=== PATIENT | male | born 2000 | race Caucasian/White ===

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

== ENCOUNTER 2020-07-14 20:28 | Observation (INO) | payer OTHER ==
[~2020-07-14] VITALS: Ht 193 cm; Wt 108.1 kg
[2020-07-14] MEDS ORDERED: RT-ALBUTEROL INHALER HFA (VENTOLIN HFA) 18 GM IH ONE (20:36)
--- NOTE | 2020-07-14 20:55 | ED General ---
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 No fevers or chills but he has been taking Tylenol and ibuprofen for body aches. He is otherwise healthy without asthma or any respiratory issues. His roommate tested positive for Covid 3 days ago. He had a Covid swab done at [employer] [facility] today but does not know the results of this yet. He takes no medications. Timing/Duration: 1-2 Days Severity: Moderate Associated Systoms: Cough, Shortness of Air Allergies and Home Medications Allergies Coded Allergies: amoxicillin (Verified Allergy, Unknown, 12/28/17) Patient Home Medication List Home Medication List Reviewed: Yes Review of Systems Review of Systems Constitutional: see HPI EENTM: see HPI Respiratory: see HPI, cough, dyspnea on exertion, short of breath Genitourinary: no symptoms reported Musculoskeletal: no symptoms reported Skin: no symptoms reported Psychiatric/Neurological: No Symptoms Reported Hematologic/Lymphatic: No Symptoms Reported Immunological/Allergic: no symptoms reported Past Grfkibp-Qvnjpp-Avokro Hx Patient Social History Drug of Choice: MARIJUANA 2nd Hand Smoke Exposure: Yes Recent Hopitalizations: No Seasonal Allergies Seasonal Allergies: No Past Medical History Surgeries: Yes (ANKLE, SHOULDER, THUMB) Orthopedic Respiratory: No Cardiac: No Neurological: No Genitourinary: No Gastrointestinal: No Musculoskeletal: No Endocrine: No HEENT: No Cancer: No Psychosocial: No Integumentary: No Blood Disorders: No Physical Exam Vital Signs Capillary Refill : Height, Weight, BMI Height: 6'4.00" Weight: 240lbs. oz. 108.996914nb; 28.12 BMI Method:Stated General Appearance: No Apparent Distress, WD/WN, Other (After ambulating to room 10 from the parking lot his oxygen saturation is 90% with good waveform. He is obviously dyspneic with expiratory wheezing. He has young otherwise healthy and fit, engages in sports regularly so this is definitely abnormal for him.) Eyes: Bilateral Eye Normal Inspection, Bilateral Eye PERRL Respiratory: No Accessory Muscle Use, No Respiratory Distress Cardiovascular: Regular Rate, Rhythm, Normal Peripheral Pulses Gastrointestinal: Non Tender, Soft Extremity: Normal Capillary Refill, Normal Inspection Neurologic/Psychiatric: Alert, Oriented x3 Skin: Normal Color Comments After about 5 minutes his oxygen saturation did recover to 97% on room air. Progress/Results/Core Measures Suspected Sepsis SIRS Temperature: Pulse: Respiratory Rate: Laboratory Tests 07/14/20 20:43: White Blood Count 9.7 Blood Pressure / Mean: Laboratory Tests 07/14/20 20:43: Creatinine 1.21, Platelet Count 190, Total Bilirubin 0.5 Results/Orders Lab Results Laboratory Tests Test 07/14/20 20:43 07/14/20 20:45 Range/Units White Blood Count 9.7 4.3-11.0 10^3/uL Red Blood Count 5.15 4.30-5.52 10^6/uL Hemoglobin 15.8 13.3-17.7 g/dL Hematocrit 47 40-54 % Mean Corpuscular Volume 91 80-99 fL Mean Corpuscular Hemoglobin 31 25-34 pg Mean Corpuscular Hemoglobin Concent 34 32-36 g/dL Red Cell Distribution Width 12.0 10.0-14.5 % Platelet Count 190 130-400 10^3/uL Mean Platelet Volume 10.3 9.0-12.2 fL Immature Granulocyte % (Auto) 0 % Neutrophils (%) (Auto) 77 H 42-75 % Lymphocytes (%) (Auto) 10 L 12-44 % Monocytes (%) (Auto) 7 0-12 % Eosinophils (%) (Auto) 5 0-10 % Basophils (%) (Auto) 0 0-10 % Neutrophils # (Auto) 7.5 1.8-7.8 10^3/uL Lymphocytes # (Auto) 1.0 1.0-4.0 10^3/uL Monocytes # (Auto) 0.7 0.0-1.0 10^3/uL Eosinophils # (Auto) 0.5 H 0.0-0.3 10^3/uL Basophils # (Auto) 0.0 0.0-0.1 10^3/uL Immature Granulocyte # (Auto) 0.0 0.0-0.1 10^3/uL D-Dimer 0.42 0.00-0.49 UG/ML Sodium Level 138 135-145 MMOL/L Potassium Level 4.2 3.6-5.0 MMOL/L Chloride Level 106 98-107 MMOL/L Carbon Dioxide Level 23 21-32 MMOL/L Anion Gap 9 5-14 MMOL/L Blood Urea Nitrogen 14 7-18 MG/DL Creatinine 1.21 0.60-1.30 MG/DL Estimat Glomerular Filtration Rate > 60 BUN/Creatinine Ratio 12 Glucose Level 97 70-105 MG/DL Calcium Level 9.1 8.5-10.1 MG/DL Corrected Calcium 8.8 8.5-10.1 MG/DL Total Bilirubin 0.5 0.1-1.0 MG/DL Aspartate Amino Transf (AST/SGOT) 31 5-34 U/L Alanine Aminotransferase (ALT/SGPT) 36 0-55 U/L Alkaline Phosphatase 124 40-136 U/L C-Reactive Protein High Sensitivity 1.20 H 0.00-0.50 MG/DL B-Type Natriuretic Peptide < 10.0 <100.0 PG/ML Total Protein 7.1 6.4-8.2 GM/DL Albumin 4.4 3.2-4.5 GM/DL My Orders Orders - BHARGAVI WEATHERS APRN Influenza A And B Antigens (07/14/20 20:33) Covid 19 Inhouse Test (07/14/20 20:33) Coronavirus Sars-Cov-2 So 2018 (07/14/20 20:33) Chest 1 View, Ap/Pa Only (07/14/20 20:33) Cbc With Automated Diff (07/14/20 20:50) Hs C Reactive Protein (07/14/20 20:50) Comprehensive Metabolic Panel (07/14/20 20:50) BNP (07/14/20 20:50) Ed Iv/Invasive Line Start (07/14/20 20:50) Fibrin Degradation Products (07/14/20 20:56) Procalcitonin (Pct) (07/14/20 20:56) Albuterol Inhaler (Ventolin Hfa) (07/14/20 22:00) Vital Signs/I&O Capillary Refill : Diagnostic Imaging Diagonstic Imaging: Xray Plain Films/CT/US/NM/MRI: chest Comments NAME: NEAL CARNEY [facility] REC#: [id number] PT STATUS: REG ER : 2000 PHYSICIAN: BHARGAVI WEATHERS APRN ADMIT DATE: 07/14/20/ER Draft Date of Exam:07/14/20 CHEST 1 VIEW, AP/PA ONLY INDICATION: Decreased O2 saturation. EXAMINATION: Chest, 07/14/2020. FINDINGS: Single view chest. The cardiomediastinal silhouette is unremarkable. The pulmonary vasculature is within normal limits. The lungs and pleural spaces are clear. IMPRESSION: No evidence of an acute cardiopulmonary process. Dictated on workstation # [id number] Dict: 07/14/202110 Trans: 07/14/202114 [facility] [id number] Interpreted by: MARY DUONG MD Electronically signed by: Departure Communication (Admissions) Time/Spoke to Admitting Phy: 21:[address] Reeves. His symptoms have significantly improved, he is currently at 95% at room air at rest. Less wheezing. Whether this is because of a slower respiratory rate and rest or because of the albuterol is unclear. Either way I would feel safer admitting him at least for observation. I will go ahead and start Decadron with the assumption that Covid is the cause of his symptoms. A bit concerning is the fact that he is only 48 hours into this illness and already having exertional hypoxia. Impression Primary Impression: exertional hypoxia Disposition: ADMITTED INPATIENT Condition: Stable Admissions Decision to Admit Reason: Admit from ER (General) Decision to Admit/Date: Jul 14, 2020 Time/Decision to Admit Time: 20:55 Departure-Patient Inst. Referrals: NO,LOCAL PHYSICIAN (PCP/Family) Primary Care Physician BHARGAVI WEATHERS APRN Jul 14, 2020 20:55
[2020-07-14 21:04] LABS: BASOPHILS % (AUTO) 0 % (0-10); EOSINOPHILS # (AUTO) 0.5 10^3/uL (0.0-0.3); EOSINOPHILS % (AUTO) 5 % (0-10); HEMATOCRIT 47 % (40-54); HEMOGLOBIN 15.8 g/dL (13.3-17.7); LYMPHOCYTES % (AUTO) 10 % (12-44); MEAN CORPUSCULAR HEMOGLOBIN 31 pg (25-34); MEAN CORPUSCULAR HGB CONC 34 g/dL (32-36); MEAN CORPUSCULAR VOLUME 91 fL (80-99); MEAN PLATELET VOLUME 10.3 fL (9.0-12.2); MONOCYTES # (AUTO) 0.7 10^3/uL (0.0-1.0); MONOCYTES % (AUTO) 7 % (0-12); NEUTROPHILS # (AUTO) 7.5 10^3/uL (1.8-7.8); NEUTROPHILS % (AUTO) 77 % (42-75); PLATELET COUNT 190 10^3/uL (130-400); WHITE BLOOD COUNT 9.7 10^3/uL (4.3-11.0)
--- NOTE | 2020-07-14 21:15 | Diagnostic Imaging Report ---
INDICATION: Decreased O2 saturation. EXAMINATION: Chest, 07/14/2020. FINDINGS: Single view chest. The cardiomediastinal silhouette is unremarkable. The pulmonary vasculature is within normal limits. The lungs and pleural spaces are clear. IMPRESSION: No evidence of an acute cardiopulmonary process. Dictated by: Dictated on workstation # [id number]
[2020-07-14 21:25] LABS: ALANINE AMINOTRANSFERASE 36 U/L (0-55); ALBUMIN 4.4 GM/DL (3.2-4.5); ALKALINE PHOSPHATASE 124 U/L (40-136); BILIRUBIN,TOTAL 0.5 MG/DL (0.1-1.0); BUN/CREATININE RATIO 12; CALCIUM 9.1 MG/DL (8.5-10.1); CARBON DIOXIDE 23 MMOL/L (21-32); CHLORIDE 106 MMOL/L (98-107); CREATININE SERUM 1.21 MG/DL (0.60-1.30); GFR ESTIMATED > 60; GLUCOSE 97 MG/DL (70-105); POTASSIUM 4.2 MMOL/L (3.6-5.0); SODIUM 138 MMOL/L (135-145); TOTAL PROTEIN 7.1 GM/DL (6.4-8.2)
[2020-07-14] MEDS ORDERED: RT-ALBUTEROL INHALER HFA (VENTOLIN HFA) 18 GM IH SCH ×2 (22:00)
[2020-07-14 22:56] VITALS: BP 126/64
[2020-07-14] MEDS ORDERED: ONDANSETRON 4 MG/2 ML (SDV) Z0FRAN IV PRN (23:15)
[2020-07-14] MEDS ORDERED: CATHETER FLUSH 10 ML SYR IV PRN (23:15)
[2020-07-15] MEDS: dexAMETHasone 6 MG TAB (DECADRON) PO SCH ×2 (00:01→20:37)
[2020-07-15] MEDS: IBUPROFEN 600 MG (MOTRIN) TAB PO PRN ×2 (00:03→20:37)
[2020-07-15] MEDS: CATHETER FLUSH 10 ML SYR IV SCH ×3 (06:28→21:26)
[2020-07-15] MEDS: RT-ALBUTEROL INHALER HFA (VENTOLIN HFA) 18 GM IH SCH ×4 (06:29→22:49)
[2020-07-15 06:31] VITALS: BP 133/80
[2020-07-15] MEDS ORDERED: FLU QUADRIvalent (3YOA+) 60 mcg/0.5 ml 2020-21 (AFLURIA) IM ONE (07:15)
[2020-07-15 07:30] VITALS: BP 144/87
--- NOTE | 2020-07-15 08:57 | History & Physicial ---
HPI History of Present Illness: HPI/Chief Complaint 19 yo wm was seen at [facility] by me yesterday with c/o illness.Yesterdays Covid PCR was negative by [facility] today. Rapid antigen was negative as well. O2 sats in clinic were 96%. Lung had slight expiratory wheeze. Pt had increased dyspnea and presented to ED where he was found to have desaturated to 90% RA . CXR was clear. Pt is admitted for further treatment and evaluation. At the time of my interview this am he is feeling ok but still has trouble taking a deep breath. Source: patient Exam Limitations: no limitations Date Seen 07/15/20 Time Seen by a Provider: 08:15 Attending Physician Sivan Ware MD PCP No,Local Physician Referring Physician Date of Admission Jul 14, 2020 at 21:30 Home Medications & Allergies Home Medications Reviewed patient Home Medication Reconciliation performed by pharmacy medication reconciliations ear mold laboratory technician and/or nursing. Patients Allergies have been reviewed. Allergies Allergies Coded Allergies amoxicillin (Verified Allergy, Unknown, 12/28/17) Past Qiwtuqm-Kysxlf-Bqpvei Hx Patient Social History Marrital Status: single Employed/Student: student, full-time Drug of Choice: MARIJUANA Smoking Status: Never a Smoker 2nd Hand Smoke Exposure: Yes Recent Hopitalizations: No Have you traveled recently?: Yes Where was recent travel?: [place] Alcohol Use?: Yes Pt feels they are or have been: No Immunizations Up To Date Tetanus Booster (TDap): Less than 5yrs Pediatric: Yes Seasonal Allergies Seasonal Allergies: No Surgeries Yes (ANKLE, SHOULDER, THUMB, KNEE) Orthopedic Respiratory No Cardiovascular No Neurological No Genitourinary No Gastrointestinal No Musculoskeletal No Endocrine History of Endocrine Disorders: No HEENT History of HEENT Disorders: No Cancer No Psychosocial History of Psychiatric Problem: No Integumentary History of Skin or Integumenta: No Blood Transfusions History of Blood Disorders: No Review of Systems Constitutional: see HPI, fever, weakness EENTM: no symptoms reported Respiratory: cough (dry), dyspnea on exertion, short of breath Cardiovascular: no symptoms reported Gastrointestinal: no symptoms reported Genitourinary: no symptoms reported Musculoskeletal: no symptoms reported Skin: no symptoms reported Psychiatric/Neurological: No Symptoms Reported Physical Exam Physical Exam Vital Signs Vital Signs - First Documented 07/14/20 07/14/20 20:39 22:20 Temp 37.6 Pulse 120 Resp 24 B/P (MAP) 152/94 (113) Pulse Ox 91 O2 Delivery Room Air O2 Flow Rate 2.00 Capillary Refill : Less Than 3 Seconds Height, Weight, BMI Height: 6'4.00" Weight: 240lbs. oz. 108.583724nd; 29.02 BMI Method:Stated General Appearance: No Apparent Distress, WD/WN, Other (After ambulating to room 10 from the parking lot his oxygen saturation is 90% with good waveform. He is obviously dyspneic with expiratory wheezing. He has young otherwise healthy and fit, engages in sports regularly so this is definitely abnormal for him.) Eyes: Bilateral Eye Normal Inspection, Bilateral Eye PERRL Respiratory: Lungs Clear, Normal Breath Sounds, No Accessory Muscle Use, No Respiratory Distress Cardiovascular: Regular Rate, Rhythm, Normal Peripheral Pulses Gastrointestinal: Non Tender, Soft Extremity: Normal Capillary Refill, Normal Inspection Neurologic/Psychiatric: Alert, Oriented x3 Skin: Normal Color Assessment/Plan Admission Diagnosis Dyspnea with desaturation of oxygen -Hx of exposurer to Covid. Plan to admit for further treatment and evaluation Admission Status: Observation SIVAN WARE MD Jul 15, 2020 08:57
[2020-07-15] MEDS ORDERED: IOHEXOL 350 MG/ML 100 ML (OMNIPAQUE 350) VIAL IV ONE (09:15)
[2020-07-15] MEDS ORDERED: NS 100 ML (IVPB) BAG IV ONE (09:15)
[2020-07-15] MEDS: ENOXAPARIN 40 MG/0.4 ML (LOVENOX) SYR SC SCH (09:34)
[2020-07-15] MEDS: predniSONE 20 MG TAB PO SCH (09:35)
[2020-07-15] MEDS: AZITHROMYCIN 250 MG TAB (ZITHROMAX) PO SCH (09:42)
--- NOTE | 2020-07-15 10:32 | Pulmonary Consultation ---
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 Denies f/ns/c. He has been taking Tylenol and Ibuprofen for body aches. No hx of asthma. Pt's roommated tested positive for COVID 3 days ago. Pt's COVID swab at [employer] was negative and rapid COVID is negative. Dr. Reeves is consulting me for pulmonary management. Allergies and Home Medications Allergies Coded Allergies: amoxicillin (Verified Allergy, Unknown, 12/28/17) Home Medications No Active Prescriptions or Reported Meds Past Sylijuu-Tnyidt-Kbaomv Hx Patient Social History Alcohol Use: Denies Use Drug of Choice: MARIJUANA Smoking Status: Never a Smoker 2nd Hand Smoke Exposure: Yes Recent Infectious Disease Expo: Yes (ROOM MATE HAS COVID 19) Recent Hopitalizations: No Have you traveled recently?: Yes Alcohol Use?: Yes Immunizations Up To Date Tetanus Booster (TDap): Less than 5yrs PED Vaccines UTD: Yes Seasonal Allergies Seasonal Allergies: No Past Medical History Surgeries: Yes (ANKLE, SHOULDER, THUMB, KNEE) Orthopedic Respiratory: No Cardiac: No Neurological: No Genitourinary: No Gastrointestinal: No Musculoskeletal: No Endocrine: No HEENT: No Cancer: No Psychosocial: No Integumentary: No Blood Disorders: No Sepsis Event Evaluation Height, Weight, BMI Height: 6'4.00" Weight: 240lbs. oz. 108.703689pe; 29.02 BMI Method:Stated Exam Exam Vital Signs Date Time Temp Pulse Resp B/P (MAP) Pulse Ox O2 Delivery O2 Flow Rate FiO2 07/15/20 09:26 Nasal Cannula 2.00 07/15/20 07:30 36.9 65 18 144/87 (106) 96 Nasal Cannula 2.00 07/15/20 06:31 35.9 69 18 133/80 (97) 95 Nasal Cannula 2.00 07/14/20 22:56 38.0 98 18 126/64 (84) 96 Nasal Cannula 2.00 07/14/20 22:37 111 20 116/73 (113) 95 Room Air 07/14/20 22:20 96 Nasal Cannula 2.00 07/14/20 20:39 37.6 120 24 152/94 (113) 91 Room Air I & O 07/15/20 07:00 Intake Total 300 ml Balance 300 ml Height & Weight Height: 6'4.00" Weight: 240lbs. oz. 108.729652zg; 29.02 BMI Method:Stated General Appearance: No Apparent Distress, WD/WN, Other (After ambulating to room 10 from the parking lot his oxygen saturation is 90% with good waveform. He is obviously dyspneic with expiratory wheezing. He has young otherwise healthy and fit, engages in sports regularly so this is definitely abnormal for him.) Respiratory: Lungs Clear, Normal Breath Sounds, No Accessory Muscle Use, No Respiratory Distress Cardiovascular: Regular Rate, Rhythm, Normal Peripheral Pulses Capillary Refill: Less Than 3 Seconds Extremity: Normal Capillary Refill, Normal Inspection Neurologic/Psychiatric: Alert, Oriented x3 Skin: Normal Color Results Lab Laboratory Tests 07/14/20 20:43 Assessment/Plan Assessment/Plan dyspnea with hypoxia -- Pt seaturated to 90% with exertion --- Probable COVID-19 secondary to recent close exposure with pt's roommate. -Influenza is negative -COVID PCR is pending -Check CTA of chest r/o PE vs PNA -CXR and labs reviewed -I recommend treating pt as COVID and keeping pt in isolation secondary to c lose contact. RADHA BECERRA DO Jul 15, 2020 10:32
[2020-07-15 12:00] VITALS: BP 172/76
--- NOTE | 2020-07-15 14:39 | Diagnostic Imaging Report ---
PROCEDURE: CT angiography of the chest with contrast. TECHNIQUE: Multiple contiguous axial images were obtained through the chest after uneventful bolus administration of intravenous contrast. 3D reconstructed CTA MIP acquisitions were also performed. Auto Exposure Controls were utilized during the CT exam to meet ALARA standards for radiation dose reduction. INDICATION: Chest pain. There are no prior CT chest examinations available for comparison. The plain film examination of the chest performed on 07/14/2020 failed to show any sign of an acute cardiopulmonary abnormality. On this exam the pulmonary arteries were not fully opacified. There is no definite defect within the pulmonary arteries to indicate a pulmonary embolus. There are a few small apparent defects in the pulmonary arteries to the lower lobes. However these could not be identified with certainty on the reconstructed sagittal and coronal images and consequently are more likely due to flow phenomenon than to a pulmonary embolus. The aorta is not abnormally dilated and there is no sign of dissection. The heart size is within normal limits. There are no coronary artery calcifications noted. There is no mediastinal or hilar adenopathy. The thyroid gland where visualized is unremarkable. The lungs are clear. There is no evidence for failure, pneumonia or for a pleural effusion. The bone windows show no sign of a fracture or of a destructive lesion. The images through the upper abdomen are unremarkable for an acute abnormality. IMPRESSION: 1. There is no evidence for an acute cardiopulmonary abnormality. In particular, there is no sign of a pulmonary embolus although the pulmonary arteries were not optimally opacified. 2. These results were discussed with Dr. Reeves. Dictated by: Dictated on workstation # [id number]
[2020-07-15 15:45] VITALS: BP 135/62
--- NOTE | 2020-07-15 15:49 | Progress Note ---
Progress Note Discussed CT with Dr. Barrientos and Dr. Rebolledo. No acute process seen - all Covid tests negative. Most likely diagnosis still Reactive airway disease secondary to URI. Will recheck labs in am and probable d/c if O2 improves. KLEVER WARE MD Jul 15, 2020 15:49
[2020-07-15 20:03] VITALS: BP 134/67
[2020-07-15 23:28] VITALS: BP 126/69
[2020-07-16] MEDS: RT-ALBUTEROL INHALER HFA (VENTOLIN HFA) 18 GM IH SCH ×3 (02:12→10:02)
[2020-07-16 03:14] VITALS: BP 135/62
[2020-07-16] MEDS: IBUPROFEN 600 MG (MOTRIN) TAB PO PRN (03:14)
--- NOTE | 2020-07-16 04:57 | Pulmonary Progress Note ---
Subjective Time Seen by a Provider: 04:52 Sepsis Event Evaluation Height, Weight, BMI Height: 6'4.00" Weight: 240lbs. oz. 108.115761vq; 29.02 BMI Method:Stated Exam Exam Vital Signs Date Time Temp Pulse Resp B/P (MAP) Pulse Ox O2 Delivery O2 Flow Rate FiO2 07/16/20 03:14 36.2 61 18 135/62 (86) 95 Room Air 07/16/20 02:12 96 Room Air 07/15/20 23:28 37.9 74 18 126/69 (88) 95 Room Air 07/15/20 22:50 95 Room Air 07/15/20 20:03 37.5 85 18 134/67 (89) 97 Room Air 07/15/20 20:00 Room Air 07/15/20 19:29 95 Room Air 07/15/20 15:45 36.9 70 16 135/62 (86) 99 Room Air 07/15/20 14:42 90 89 07/15/20 14:40 91 Room Air 07/15/20 12:00 36.1 87 18 172/76 (108) 95 Nasal Cannula 2.00 07/15/20 09:26 Nasal Cannula 2.00 07/15/20 08:00 Nasal Cannula 2.00 07/15/20 07:30 36.9 65 18 144/87 (106) 96 Nasal Cannula 2.00 07/15/20 06:31 35.9 69 18 133/80 (97) 95 Nasal Cannula 2.00 I & O0 07/16/20 07:00 Intake Total 4170 ml Balance 4170 ml Height & Weight Height: 6'4.00" Weight: 240lbs. oz. 108.700426yy; 29.02 BMI Method:Stated General Appearance: No Apparent Distress, WD/WN, Other (After ambulating to room 10 from the parking lot his oxygen saturation is 90% with good waveform. He is obviously dyspneic with expiratory wheezing. He has young otherwise healthy and fit, engages in sports regularly so this is definitely abnormal for him.) Respiratory: Lungs Clear, Normal Breath Sounds, No Accessory Muscle Use, No Respiratory Distress Cardiovascular: Regular Rate, Rhythm, Normal Peripheral Pulses Capillary Refill: Less Than 3 Seconds Extremity: Normal Capillary Refill, Normal Inspection Neurologic/Psychiatric: Alert, Oriented x3 Skin: Normal Color Results Lab Laboratory Tests 07/14/20 20:43 Assessment/Plan Assessment/Plan dyspnea with hypoxia -- Pt desaturated to 90% with exertion --- recent close exposure with pt's roommate. -Influenza is negative -COVID PCR is Negative -Repeat labs pending -Tm -- 38.0 CTA of chest r/o PE -- Negative for PE and PNA Possible AsthmaAE -Add advair -Check PFT as out patient -No hx of asthma however he has a strong family hx of asthma. -Pt was wheezing on admission Allergic rhinitis -Start Claritin Occasional Marijuanna and Vaping -Education RADHA BECERRA DO Jul 16, 2020 04:57
[2020-07-16] MEDS: CATHETER FLUSH 10 ML SYR IV SCH (06:07)
[2020-07-16 06:33] LABS: BASOPHILS % (AUTO) 0 % (0-10); EOSINOPHILS % (AUTO) 0 % (0-10); HEMATOCRIT 44 % (40-54); HEMOGLOBIN 14.9 g/dL (13.3-17.7); LYMPHOCYTES # (AUTO) 0.7 10^3/uL (1.0-4.0); LYMPHOCYTES % (AUTO) 9 % (12-44); MEAN CORPUSCULAR HEMOGLOBIN 30 pg (25-34); MEAN CORPUSCULAR HGB CONC 34 g/dL (32-36); MEAN CORPUSCULAR VOLUME 90 fL (80-99); MEAN PLATELET VOLUME 10.5 fL (9.0-12.2); MONOCYTES # (AUTO) 0.5 10^3/uL (0.0-1.0); MONOCYTES % (AUTO) 6 % (0-12); NEUTROPHILS # (AUTO) 6.9 10^3/uL (1.8-7.8); NEUTROPHILS % (AUTO) 85 % (42-75); PLATELET COUNT 178 10^3/uL (130-400); WHITE BLOOD COUNT 8.1 10^3/uL (4.3-11.0)
[2020-07-16 06:41] LABS: ALBUMIN 4.3 GM/DL (3.2-4.5); CHLORIDE 105 MMOL/L (98-107); POTASSIUM 4.1 MMOL/L (3.6-5.0); SODIUM 138 MMOL/L (135-145)
[2020-07-16 06:42] LABS: CALCIUM 9.3 MG/DL (8.5-10.1)
[2020-07-16 06:43] LABS: GLUCOSE 119 MG/DL (70-105)
[2020-07-16 06:44] LABS: TOTAL PROTEIN 7.3 GM/DL (6.4-8.2)
[2020-07-16 06:45] LABS: BILIRUBIN,TOTAL 0.4 MG/DL (0.1-1.0); CARBON DIOXIDE 23 MMOL/L (21-32)
[2020-07-16 06:47] LABS: ALKALINE PHOSPHATASE 110 U/L (40-136); CREATININE SERUM 1.09 MG/DL (0.60-1.30); GFR ESTIMATED > 60; PHOSPHORUS 2.9 MG/DL (2.3-4.7)
--- NOTE | 2020-07-16 06:47 | Diagnostic Imaging Report ---
INDICATION: Shortness of breath Portable chest 5:44 AM Heart size and pulmonary vascularity are normal. Lungs are clear. There are no effusions or pneumothoraces. IMPRESSION: Negative chest. Dictated by: Dictated on workstation # [id number]
[2020-07-16 06:48] LABS: BUN/CREATININE RATIO 16
[2020-07-16 06:50] LABS: ALANINE AMINOTRANSFERASE 28 U/L (0-55); MAGNESIUM 2.3 MG/DL (1.6-2.4)
[2020-07-16 08:00] VITALS: BP 142/75
[2020-07-16] MEDS: ENOXAPARIN 40 MG/0.4 ML (LOVENOX) SYR SC SCH (08:36)
[2020-07-16] MEDS: predniSONE 20 MG TAB PO SCH (08:36)
[2020-07-16] MEDS: AZITHROMYCIN 250 MG TAB (ZITHROMAX) PO SCH (08:36)
[2020-07-16] MEDS ORDERED: AZIT250T12 PO (08:48)
[2020-07-16] MEDS ORDERED: PRD20T PO (08:48)
[2020-07-16] MEDS ORDERED: FLUT12AE4 IH (08:48)
[2020-07-16] MEDS ORDERED: ALBU18HF2 IH (08:48)
[2020-07-16] MEDS ORDERED: LORATADINE (CLARITIN) 10 MG TAB PO SCH (09:00)
[2020-07-16] MEDS: ADVAIR HFA 115/21 MCG INHALER 8 GM IH SCH ×2 (10:03→11:03)
--- NOTE | 2020-07-16 10:51 | Discharge Summary ---
Diagnosis/Chief Complaint Date of Admission Jul 14, 2020 at 21:30 Date of Discharge Discharge Date: Jul 16, 2020 Admission Diagnosis Dyspnea with desaturation of oxygen -Hx of exposurer to Covid. Plan to admit for further treatment and evaluation Primary Care No,Local Physician Discharge Summary Discharge Physical Exam Allergies: Coded Allergies: amoxicillin (Verified Allergy, Unknown, 12/28/17) Vitals & I&Os Vital Signs Date Time Temp Pulse Resp B/P (MAP) Pulse Ox O2 Delivery O2 Flow Rate FiO2 07/16/20 11:24 35.6 72 19 142/75 98 Room Air 07/15/20 12:00 2.00 General Appearance: No Apparent Distress, WD/WN Respiratory: Lungs Clear, No Respiratory Distress Cardiovascular: Regular Rate, Rhythm, No Murmur Gastrointestinal: Normal Bowel Sounds, Non Tender, Soft Neurologic/Psychiatric: Alert, Oriented x3 Hospital Course Pt was admitted to the hospital due to exertional hypoxia. He is currenlty on quarantine for COVID exposure but COVID rapid and PCR were both negative. Despite this he was febrile with relative hypoxia. He underwent a CT Chest which ruled out PE with otherwise clear lungs. He was started on prednisone for presumed reactive airway disease and azithromycin and his symptoms improved. Discussed concern for false negative on his COVID test and advised continued isolation. Discharged with azithromycin and prednisone course to complete as an outpatient. I discussed this with Dr Ware at [facility] and with Dr Rebolledo. He is to follow up with Dr Ware next week. Labs (last 24 hrs) Microbiology 07/14/20 Influenza Types A,B Antigen ([facility]) - Final, Complete Patient resulted labs reviewed. Pending Labs Discussion & Recommendations Discharge Planning: >30 minutes discharge planning Discharge Home Medications: Active Scripts Active Prednisone 20 Mg Tab 40 Mg PO DAILY@1000 Ventolin Hfa (Albuterol Sulfate) 18 Gm Hfa.aer.ad 0 Gm IH RTQ4HR Advair Hfa 115-21 Mcg Inhaler (Fluticasone/Salmeterol) 12 Gm Hfa.aer.ad 0 Puff IH RTBID Azithromycin 250 Mg Tablet 250 Mg PO DAILY Instructions to patient/family Please see electronic discharge instructions given to patient. Copy Copies To 1: KLEVER WARE MD, KATELYN M MD Jul 16, 2020 10:51
--- NOTE | 2020-07-16 10:53 | Discharge Inst-Simple/Standard ---
Discharge Inst-Standard Discharge Medications New, Converted or Re-Newed RX: Transmitted to Pharmacy Patient Instructions/Follow Up Plan of Care/Instructions/FU: Please continue to take your medications as written. Please follow up with your primary care doctor to follow up with Dr Santamaria next week. Activity as Tolerated: Yes Discharge Diet: No Restrictions Return to The Hospital For: Chest pain, shortness of breath, fever, confusion, if you feel you are getting worse. SHAYY ANSARI MD Jul 16, 2020 10:53
[2020-07-16 11:24] VITALS: BP 142/75
== END 2020-07-16 11:24 | disposition home or self-care (01) ==
LOC: EDUNIT# 20:28 → ER 20:30 → 4TH 21:30 → UNDOADMOB 21:30 → UNDODISOB 07-16 11:26
PROVIDERS: ADMIT Internal Medicine; ATTEND Internal Medicine
DX: R06.00 Dyspnea, unspecified (principal); Z88.1 Allergy status to other antibiotic agents; Z20.822 Contact with and (suspected) exposure to COVID-19
CPT/HCPCS: 71045 ×2; 71275; 80053 ×2; 83735; 83880 ×2; 84100; 84145 ×2; 85025 ×2; 85379 ×2; 86141; 87804; 94640 ×2; 94760 ×2; 94761; 99284; G0378; U0002; 36415; 87635